=== PATIENT | male | born 1980 | race African-American/Black ===

== ENCOUNTER 2016-06-05 17:58 | Emergency (ER) | payer MEDICAID, OTHER ==
[~2016-06-05] VITALS: Ht 180.3 cm; Wt 70.7 kg
[~2016-06-05 17:58] MED LIST: ALBU8I INH; DICL75 PO
[2016-06-05 18:01] VITALS: BP 135/53; PULSE 70; RESP 16; TEMP 98.1; O2SAT 98
--- NOTE | 2016-06-05 18:36 | PD ---
HPI Chief Complaint: Injury Time Seen by Provider: 18:33 Travel History International Travel<30 days: No Contact w/Intl Traveler<30days: No Traveled to known affect area: No History of Present Illness HPI 36-year-old male presents to the ED for evaluation of chronic right knee pain. Patient has been seen many times for the same complaint. He was provided in knee immobilizer, crutches and instructed to follow up on an outpatient basis with the orthopedist at the last visit. He states that he was working with his knee immobilizer and the right knee gave way. He denies falling onto the knee. States that it was swollen for approximately one hour but resolved with ice and rest. No other new symptoms to report. He has not been compliant with discharge instructions. He requests pain medications. [facility] Past Medical History Medical History: Denies Significant Hx Blood Disorders: No Depression: No Cardiovascular Problems: Yes (HEART MURMUR) Diminished Hearing: No Sickle Cell Disease: No Tetanus Vaccination: < 5 Years Influenza Vaccination: No Past Surgical History Surgical History: No Previous Surgery Social History Alcohol Use: No Tobacco Use: No Substance Use: No Allergies-Medications (Allergen,Severity, Reaction): Coded Allergies: No Known Allergies (Verified , 06/05/16) Reported Meds & Prescriptions Reported Meds & Active Scripts Active Diclofenac Sodium DR (Diclofenac Sodium) 75 Mg Tabdr 75 Mg PO BID Review of Systems Except as stated in HPI: all other systems reviewed are Neg Physical Exam Narrative GENERAL: Well-nourished, well-developed thin black male in no acute distress. SKIN: Focused skin assessment warm/dry. HEAD: Normocephalic. EYES: No scleral icterus. No injection or drainage. NECK: Supple, trachea midline. No JVD or lymphadenopathy. CARDIOVASCULAR: Regular rate and rhythm without murmurs, gallops, or rubs. RESPIRATORY: Breath sounds equal bilaterally. No accessory muscle use. GASTROINTESTINAL: Abdomen soft, non-tender, nondistended. MUSCULOSKELETAL: No cyanosis, or edema. Patient is able to order noted to walk with a limping gait. FOCUSED RIGHT LOWER EXTREMITY EXAM: 2+ DP pulse. No tenderness to palpation of the joint lines. No patellar balloting. No effusion, edema or erythema noted. Patient is able to flex to approximately 100 and extend beyond 0. There are /valgus stress testing elicits pain. Negative anterior drawer testing. Neurovascularly intact. BACK: Nontender without obvious deformity. No CVA tenderness. Data Data Last Documented VS Vital Signs Date Time Temp Pulse Resp B/P Pulse Ox O2 Delivery O2 Flow Rate FiO2 06/05/16 18:01 98.1 70 16 135/53 98 [facility] Medical Decision Making Medical Screen Exam Complete: Yes Emergency Medical Condition: Yes Differential Diagnosis Ligament injury versus meniscal injury versus sprain versus strain versus other Narrative Course 36-year-old male presents to the ED for evaluation of chronic right knee pain. Patient has been seen many times for the same complaint. He was provided in knee immobilizer, crutches and instructed to follow up on an outpatient basis with the orthopedist at the last visit. He states that he was working with his knee immobilizer and the right knee gave way. He denies falling onto the knee. States that it was swollen for approximately one hour but resolved with ice and rest. No other new symptoms to report. He has not been compliant with discharge instructions. He requests pain medications. Vitals reviewed. Physical exam reveals a well-appearing black male in no acute distress. He is able to bear weight on the affected extremity and walks with a limping gait. 2+ DP pulse. No tenderness to palpation of the joint lines. No patellar balloting. No effusion, edema or erythema noted. Patient is able to flex to approximately 100 and extend beyond 0. Varus/valgus stress testing elicits pain. Negative anterior drawer testing. Neurovascularly intact. I don't feel imaging is warranted at this time. Patient needs to be compliant with his discharge instructions and follow-up with the orthopedist for outpatient evaluation. He is instructed to wear his knee immobilizer, follow-up with the on-call orthopedist Dr. Kwon. He is prescribed a refill of diclofenac. He indicated understanding of the instructions and is agreeable to the care plan. The patient is stable and discharged home. Diagnosis Primary Impression: Internal derangement of right knee Referrals: Ray Kwon MD Patient Instructions: General Instructions, Knee Pain (ED) Additional Instructions: Rest, ice, elevate the extremity. Apply ice no longer than 10-15 minutes per hour a few times a day. Return to normal, gentle activity as tolerated. No running, jumping activities till clear by the orthopedist Follow-up with the orthopedist as discussed. Return to the ED for any urgent or emergent medical condition. Med/Other Pt SpecificInfo: Prescription(s) given Scripts Diclofenac Sodium DR 75 Mg Tabdr75 Mg PO BID #60 TAB Ref 0 Prov:Dagoberto De La Rosa MD 06/05/16 Disposition: 01 DISCHARGE HOME Condition: Stable Brook Arango Jun 05, 2016 18:36
[2016-06-05] MEDS ORDERED: DICL75TA PO (18:37)
== END 2016-06-05 18:40 | disposition home or self-care (01) ==
LOC: PHEFT 17:58
DX: M23.91 Unspecified internal derangement of right knee (principal); M25.561 Pain in right knee; G89.29 Other chronic pain; Z86.79 Personal history of other diseases of the circulatory system
CPT/HCPCS: 99283

== ENCOUNTER 2016-08-04 21:54 | Emergency (ER) | payer OTHER, MEDICAID ==
[~2016-08-04] VITALS: Ht 182.9 cm; Wt 78.0 kg
[~2016-08-04 21:54] MED LIST changes: -ALBU8I INH; -DICL75 PO; +DICL75TA PO
[2016-08-04 21:57] VITALS: BP 115/59; PULSE 61; RESP 16; TEMP 98.2; O2SAT 99
[2016-08-04] MEDS ORDERED: IBUPROFEN 800 MG TAB PO ONE (23:00)
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
[2016-08-04] MEDS ORDERED: CYCL1TAB29 PO (23:18)
[2016-08-04] MEDS ORDERED: DICL75TA PO (23:18)
--- NOTE | 2016-08-04 23:45 | RADRPT ---
EXAM DATE/TIME: 08/04/2016 23:19 [facility] COMPARISON: No previous studies available for comparison. INDICATIONS : Right elbow pain. MEDICAL HISTORY : None. SURGICAL HISTORY : None. ENCOUNTER: Initial ACUITY: 1 day PAIN SCORE: 10 LOCATION: Right Elbow FINDINGS: Multiple view examination of the right elbow demonstrates no soft tissue swelling, joint effusion, or fracture. The osseous structures are in normal alignment. Bony mineralization is normal. CONCLUSION: Normal examination for a patient of this age. Tre Eddy MD on August 04, 2016 at 23:41 Board Certified Radiologist. This report was verified electronically.
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
== END 2016-08-05 00:07 | disposition home or self-care (01) ==
LOC: NEPD 21:54
DX: S20.211A Contusion of right front wall of thorax, initial encounter (principal); S50.01XA Contusion of right elbow, initial encounter; R01.1 Cardiac murmur, unspecified; V43.62XA Car passenger injured in collision with other type car in traffic accident, initial encounter; Y93.89 Activity, other specified; Y92.410 Unspecified street and highway as the place of occurrence of the external cause; Y99.8 Other external cause status
CPT/HCPCS: 71020; 73080; 99284

== ENCOUNTER 2016-12-03 19:44 | Emergency (ER) | payer MEDICAID ==
[~2016-12-03] VITALS: Ht 180.3 cm; Wt 78.6 kg
[~2016-12-03 19:44] MED LIST changes: +CYCL1TAB29 PO
[2016-12-03 19:51] VITALS: BP 128/77; PULSE 69; RESP 18; TEMP 98.1; O2SAT 99
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
== END 2016-12-03 21:40 | disposition home or self-care (01) ==
LOC: PHEFT 19:44
DX: S39.012A Strain of muscle, fascia and tendon of lower back, initial encounter (principal); M23.8X1 Other internal derangements of right knee; V89.2XXD Person injured in unspecified motor-vehicle accident, traffic, subsequent encounter
CPT/HCPCS: 99282

== ENCOUNTER 2017-07-14 15:19 | Emergency (ER) | payer MEDICAID ==
[2017-07-14 15:24] VITALS: BP 124/67; PULSE 51; RESP 14; TEMP 98.3; O2SAT 100
[2017-07-14] MEDS ORDERED: IBUP1TAB7 PO (16:10)
[2017-07-14] MEDS ORDERED: AUGM875T3 PO (16:10)
--- NOTE | 2017-07-14 16:16 | PD ---
HPI Chief Complaint: ENT Complaint Time Seen by Provider: 16:04 Travel History International Travel<30 days: No Contact w/Intl Traveler<30days: No Traveled to known affect area: No History of Present Illness HPI 37-year-old male presents emergency department for evaluation of right ear pain that is been present for 2 days. Says that the pain is "killing him" described as sharp and nonradiating. He points to the preauricular area as the focus of his pain. He denies any water exposures. Denies fever or chills. He denies upper respiratory type of symptoms. He denies chronic medical issues or medications. PFSH Past Medical History Autoimmune Disease: No Blood Disorders: No Depression: No Cardiovascular Problems: Yes (HEART MURMUR) Diminished Hearing: No Gastrointestinal Disorders: No Glaucoma: No Musculoskeletal: No Neurologic: No Psychiatric: No Reproductive: No Respiratory: No Immunizations Current: Yes Radiation Therapy: No Sickle Cell Disease: No Past Surgical History Other Surgery: No Social History Alcohol Use: No Tobacco Use: No Substance Use: No Allergies-Medications (Allergen,Severity, Reaction): Coded Allergies: No Known Allergies (Verified , 12/03/16) Reported Meds & Prescriptions Reported Meds & Active Scripts Active Review of Systems Except as stated in HPI: all other systems reviewed are Neg Physical Exam Narrative GENERAL: Well-nourished, well-developed patient, in NAD SKIN: Focused skin assessment warm/dry. No rashes or lesions. HEAD: Normocephalic. Atraumatic. EYES: No scleral icterus. No injection or drainage. PERRLA, EOMI Right tympanic membranes bulging with air-fluid level. Mild erythema. THROAT: No pharyngeal injection, exudates, or tonsillar hypertrophy. Airway is patent. NECK: Supple, trachea midline. No JVD. No meningismus. Lymphadenopathy present in the preauricular and anterior cervical region with associated tenderness to palpation CARDIOVASCULAR: Regular rate and rhythm without murmurs, gallops, or rubs. RESPIRATORY: Breath sounds equal bilaterally. No accessory muscle use. No wheezes, rales, or rhonchi MUSCULOSKELETAL: No cyanosis, or edema. BACK: Nontender without obvious deformity. No CVA tenderness. Data Data Last Documented VS Vital Signs Date Time Temp Pulse Resp B/P (MAP) Pulse Ox O2 Delivery O2 Flow Rate FiO2 5/26/18 15:24 98.3 51 14 124/67 (47) 100 [facility] Medical Decision Making Medical Screen Exam Complete: Yes Emergency Medical Condition: Yes Differential Diagnosis Right otitis media, lymphadenitis, upper respiratory infection, allergic rhinitis Narrative Course 37-year-old male presents emergency department for evaluation of right ear pain that is been present for 2 days. Says that the pain is "killing him" described as sharp and nonradiating. He points to the preauricular area as the focus of his pain. He denies any water exposures. Denies fever or chills. He denies upper respiratory type of symptoms. He denies chronic medical issues or medications. Vital signs are stable. Physical exam findings consistent with AOM. Pt will be discharged with augmentin and ibuprofen. He is advised to take all medications as prescribed. Follow up with his PCP. Return for worsening or persistent symptoms. Diagnosis Primary Impression: Otitis media Qualified Codes: H66.90 - Otitis media, unspecified, unspecified ear Referrals: Primary Care Physician Patient Instructions: Ear Infection (DC), General Instructions Additional Instructions: Take your medications as prescribed. Follow-up with your primary care physician within 2-3 days. Scripts Ibuprofen (Ibuprofen) 800 Mg Tab 800 MG PO Q8H Y for Pain/Inflammation for 5 Days, #15 TAB 0 Refills Prov: Jose F Case MD 07/14/17 Amoxicillin-Clavulanate (Augmentin) 875-125 Mg Tab 1 TAB PO BID for Infection, #14 TAB 0 Refills Prov: Jose F Case MD 07/14/17 Disposition: 01 DISCHARGE HOME Condition: Stable Tamika Austin July 14, 2017 16:16
== END 2017-07-14 16:38 | disposition home or self-care (01) ==
LOC: NEPD 15:19
DX: H66.91 Otitis media, unspecified, right ear (principal)
CPT/HCPCS: 99283